=== PATIENT | male | born 1975 | race Caucasian/White ===

== ENCOUNTER 2016-12-11 18:54 | Emergency (ER) | payer OTHER ==
[2016-12-11] MEDS ORDERED: OXYCODONE-ACETAMINOPHEN 5-325 MG TABLET PO ONE (20:05)
[2016-12-11] MEDS ORDERED: LIDOCAINE 5% (700 MG) TRANSDERMAL ADH..PATCH TP ONE (20:05)
--- NOTE | 2016-12-11 20:08 | ER Document Report ---
HPI - HPI Patient complains to provider of: rib pain Onset: This evening Onset/Duration: Gradual Quality of pain: Sharp Pain Level: 5 Context: Patient states that he fractured his eighth rib on the left side 2 weeks ago roughhousing with family members. Patient states that the rib pain had gradually started to improve and was much better. Patient states that he was lying on his back working on his vehicle and rolled onto his left side and felt a crack in an increase in pain. Patient complains of increased pain despite taking pain medication. Patient does complain of nausea but denies any vomiting. Patient complains of pain with deep inspiration. Patient denies shortness of breath. Associated Symptoms: Other - Sided rib pain Exacerbated by: Movement, Deep breathing Relieved by: Denies Similar symptoms previously: Yes Recently seen / treated by doctor: No - ROS ROS below otherwise negative: Yes Systems Reviewed and Negative: Yes All other systems reviewed and negative - CONSTITUTIONAL Constitutional: DENIES: Fever - CARDIOVASCULAR Cardiovascular: REPORTS: Chest pain - left side rib pain - RESPIRATORY Respiratory: REPORTS: Coughing. DENIES: Trouble Breathing - GASTROINTESTINAL Gastrointestinal: REPORTS: Nausea. DENIES: Abdominal Pain, Patient vomiting - MUSCULOSKELETAL Musculoskeletal: DENIES: Extremity pain - DERM Skin Color: Normal Skin Problems: None Past Medical History - General Information source: Patient - Social History Smoking Status: Never Smoker Frequency of alcohol use: Occasional Drug Abuse: None Occupation: public safety Lives with: Family Family History: Reviewed & Not Pertinent Patient has suicidal ideation: No Patient has homicidal ideation: No Renal/ Medical History: Denies: Hx Peritoneal Dialysis Psychiatric Medical History: Reports: Hx Anxiety, Hx Depression Past Surgical History: Reports: Hx Gastric Bypass Surgery Vertical Provider Document - CONSTITUTIONAL Agree With Documented VS: Yes Exam Limitations: No Limitations General Appearance: WD/WN, Mild Distress - INFECTION CONTROL TRAVEL OUTSIDE OF THE [place] IN LAST 30 DAYS: No - HEENT HEENT: Atraumatic, Normocephalic - NECK Neck: Normal Inspection, Supple - RESPIRATORY Respiratory: Breath Sounds Normal, No Respiratory Distress. negative: Chest Non -Tender - left lateral chest wall pain with palpation, crepitus, no subcutaneous emphysema, no ecchymosis, Rales, Rhonchi, Wheezing O2 Sat by Pulse Oximetry: 100 - CARDIOVASCULAR Cardiovascular: Regular Rate, Regular Rhythm, No Murmur - GI/ABDOMEN Gastrointestinal: Abdomen Soft, Abdomen Non-Tender, No Organomegaly - BACK Back: Normal Inspection - MUSCULOSKELETAL/EXTREMETIES Musculoskeletal/Extremeties: DEDE BETHEA - NEURO Level of Consciousness: Awake, Alert, Appropriate Motor/Sensory: No Motor Deficit - DERM Integumentary: Warm, Dry, No Rash Course - Re-evaluation Re-evalutation: 12/11/16 21:[address] Valadez regarding patient presentation and management. Patient educated on pain management. Patient only has a few tablets of hydrocodone at home. Patient advised that a short course of oxycodone will be written, but that he should not take the oxycodone with the hydrocodone and that he should not take Lorazepam with either of the narcotic pain medications. Patient verbalized understanding and agrees with plan of care. - Vital Signs Vital signs: Temp Pulse Resp BP Pulse Ox 97.5 F 70 18 145/106 H 100 12/11/16 18:58 12/11/16 18:58 12/11/16 18:58 12/11/16 18:58 12/11/16 18:58 - Diagnostic Test Radiology reviewed: Image reviewed, Reports reviewed Discharge - Discharge Clinical Impression: Elevated blood pressure reading, Rib pain on left side Rib fracture Qualifiers: Encounter type: initial encounter Rib fracture type: single rib Fracture type: closed Laterality: left Qualified Code(s): S22.32XA - Fracture of one rib, left side, initial encounter for closed fracture Condition: Stable Disposition: HOME, SELF-CARE Instructions: Oral Narcotic Medication ([facility]), Chest Wall Pain ([facility]), Rib Injuries and Fractures ([facility]) Additional Instructions: Return immediately for any new or worsening symptoms Followup with your primary care provider, call tomorrow to make a followup appointment Take your anti-inflammatory medication that you have at home as prescribed. Take the oxycodone or hydrocodone, do not take both medications together Do not take your Lorazepam if you are taking your narcotic pain medications to avoid adverse interactions. Your blood pressure was mildly elevated today, recheck with your primary doctor when you get home to have this reevaluated. You may use over the counter lidocaine patches as directed to help with your pain Prescriptions: Oxycodone HCl/Acetaminophen [Percocet 5-325 mg Tablet] 1 - 2 tab PO ASDIR PRN # 15 tablet PRN Reason: Forms: Elevated Blood Pressure [facility] - Follow up as needed
--- NOTE | 2016-12-11 20:49 | RADIOLOGY REPORT (SQ) ---
EXAM DESCRIPTION: RIBS LEFT W/PA CHEST COMPLETED DATE/TIME: 12/11/2016 8:26 pm REASON FOR STUDY: hx recent left 8th rib fx, increased pain COMPARISON: None. TECHNIQUE: Frontal view of the chest and additional views of the left ribs acquired. NUMBER OF VIEWS: Four view. LIMITATIONS: None. FINDINGS: FRONTAL CXR: No pneumothorax. No pleural effusion. No atelectasis or infiltrates. RIBS: Cortical irregularity is seen of the left 10th posterior lateral rib. OTHER: No other significant finding. IMPRESSION: No pneumothorax. Cortical irregularity seen of the left 10th rib posterior laterally ma y represent a nondisplaced fracture. Recommend correlation for mechanism of injury and point tendern ess. COMMENT: SITE OF TRAUMA/COMPLAINT MARKED/STAMP COMPLETED: No TECHNICAL DOCUMENTATION: JOB ID: [id number] [employer]- All Rights Reserved
[2016-12-11 21:44] VITALS: BP 137/82
== END 2016-12-11 21:44 | disposition home or self-care (01) ==
LOC: ER 18:54
DX: S22.32XA Fracture of one rib, left side, initial encounter for closed fracture (principal); X58.XXXA Exposure to other specified factors, initial encounter; R07.81 Pleurodynia; R11.0 Nausea; R05 Cough; Z98.84 Bariatric surgery status
CPT/HCPCS: 99283